=== PATIENT | male | born 1995 | race Caucasian/White ===

== ENCOUNTER 2016-06-12 11:24 | Inpatient (IN) | payer OTHER ==
[2016-06-12 12:35] VITALS: BMI 28.1
--- NOTE | 2016-06-12 15:20 | HP ---
COWS - Scale Resting Pulse: 1= [place] 81-100 Sweatin=Flushed/Facial Moisture Restless Observation: 3= Extraneous Movement Pupil Size: 2= Moderately Dilated Bone or Joint Aches: 2= Severe Diffuse Aches Runny Nose/ Eye Tearin= Runny Nose/Eyes GI Upset > 30mins: 3= Vomiting/Diarrhea Tremor Observation: 2= Slight Tremor Visible Yawning Observation: 2= >3x During Session Anxiety or Irritability: 2=Irritable/Anxious Goose Flesh Skin: 0=Smooth Skin COWS Score: 21 CIWA Score - CIWA Score Nausea/Vomitin Muscle Tremors: 3 Anxiety: 3 Agitation: 3 Paroxysmal Sweats: 2 Orientation: 0-Oriented Tacttile Disturbances: 2-Mild Itch/Numbness/Burn Auditory Disturbances: 2-Mild Harshness/Frighten Visual Disturbances: 2-Mild Sensitivity Headache: 2-Mild CIWA-Ar Total Score: 22 Admission [facility] Chief Complaint: THIS 20 YEARS OLD MALE WITH HEROIN,COCAINE,XANAX,DEPENDENCE,WITHDRAWAL SYMPTOM, LAST TREATMENT REHAB 05/15/14 TO 07/23/13 NICOTINE DEPENDENCE LONGEST PERIOD SOBRIETY 7 MONTHS ON BACTRIM DS FOR ABSCESS OF FOREARMS Allergies/Adverse Reactions: Allergies Allergy/AdvReac Type Severity Reaction Status Date / Time No Known Allergies Allergy Verified 05/15/14 19:06 History of Present Illness: THIS 20 YEARS OL DMALE WITH HEROIN,CCOAINE AND XANAX DEPENDENCE FOR DETOX MENTIONED Exam Limitations: No Limitations - Ebola screening Have you traveled outside of the country in the last 21 days: No (N) Have you had contact with anyone from an Ebola affected area: No Have you been sick,other than usual withdrawal symptoms: No Do you have a fever: No - Review of Systems Constitutional: Chills, Diaphoresis, Night Sweats EENT: reports: Tearing, Nose Congestion Respiratory: reports: No Symptoms reported Cardiac: reports: No Symptoms Reported GI: reports: Diarrhea, Nausea, Vomiting, Abdominal cramping : reports: No Symptoms Reported Musculoskeletal: reports: Back Pain, Joint Pain, Muscle Pain, Joint Stiffness Integumentary: reports: Dryness Neuro: reports: Headache, Tremors Endocrine: reports: No Symptoms Reported Hematology: reports: No Symptoms Reported Psychiatric: reports: other (INSOMNIA) Patient History - Patient Medical History Hx Anemia: No Hx Asthma: No Hx Chronic Obstructive Pulmonary Disease (COPD): No Hx Cancer: No Hx Cardiac Disorders: No Hx Congestive Heart Failure: No Hx Hypertension: No Hx Hypercholesterolemia: No Hx Pacemaker: No HX Cerebrovascular Accident: No Hx Seizures: No Hx Diabetes: No Hx Gastrointestinal Disorders: No Hx Liver Disease: No Hx Genitourinary Disorders: No Hx Sexually Transmitted Disorders: No Hx Renal Disease (ESRD): No Hx Thyroid Disease: No Hx Human Immunodeficiency Virus (HIV): No (LAST 12/09 NEGATIVE) Hx Hepatitis C: No Hx Depression: No Hx Suicide Attempt: No Hx Bipolar Disorder: No Hx Schizophrenia: No Other Medical History: NO SUICIDAL,NO HOMICIDAL - Patient Surgical History Past Surgical History: No Hx Neurologic Surgery: No Hx Cataract Extraction: No Hx Cardiac Surgery: No Hx Lung Surgery: No Hx Breast Surgery: No Hx Breast Biopsy: No Hx Abdominal Surgery: No Hx Appendectomy: No Hx Cholecystectomy: No Hx Genitourinary Surgery: No Hx Section: No Hx Orthopedic Surgery: No Anesthesia Reaction: No - PPD History Previous Implant?: No Documented Results: Negative w/o proof Implanted On Prior R Admission?: Yes Date: 05/17/14 PPD to be Administered?: Yes - Smoking Cessation Smoking history: Current every day smoker Have you smoked in the past 12 months: Yes Aproximately how many cigarettes per day: 20 Hx Chewing Tobacco Use: No Initiated information on smoking cessation: Yes 'Breaking Loose' booklet given: 06/12/16 - Substance & Tx. History Hx Alcohol Use: No Hx Substance Use: Yes Substance Use Type: Cocaine, Heroin, Opiates - Substances Abused Heroin Route: Injection Frequency: Daily Amount used: 20 to 30 bags Age of first use: 18 Date of Last Use: 06/12/16 Alprazolam (Xanax) Route: Oral Frequency: 1-3 times last 30 days Amount used: 2mg pills Age of first use: 16 Date of Last Use: 06/12/16 Marijuana/Hashish Route: Smoking Frequency: 1-2 times per week Amount used: 1 blunt Age of first use: 12 Date of Last Use: 06/11/16 Cocaine Route: Inhalation Frequency: 1-3 times last 30 days Amount used: 20 bags Age of first use: 17 Date of Last Use: 06/10/16 Family Disease History - Family Disease History Family Disease History: Other: Mother (HIV AND MS; DEPENDENT ON ETOH) Admission Physical Exam [facility] - Vital Signs Vital Signs: Vital Signs - 24 hr 06/12/16 12:24 Temperature 97.5 F L Pulse Rate 94 H Respiratory 18 Rate Blood Pressure 137/71 - Physical General Appearance: Yes: Moderate Distress, Tremorous, Irritable, Sweating, Anxious HEENTM: Yes: Rhinorrhea Respiratory: Yes: Lungs Clear Neck: Yes: Within Normal Limits Breast: Yes: Breast Exam Deferred Cardiology: Yes: Within Normal Limits, Regular Rhythm, Regular Rate, S1, S2 Abdominal: Yes: Within Normal Limits, Normal Bowel Sounds, Non Tender, Flat, Soft Genitourinary: Yes: Within Normal Limits Back: Yes: Muscle Spasm Musculoskeletal: Yes: Back pain, Joint Stiffness, Muscle Pain Extremities: Yes: Tremors Neurological: Yes: trapeze artist II-XII NML intact, Fully Oriented, Alert, Motor Strength 5/5 Integumentary: Yes: Dry, Track [place] Lymphatic: Yes: Within Normal Limits - Diagnostic (1) Opioid dependence with withdrawal Current Visit: Yes Status: Acute (2) Uncomplicated sedative, hypnotic or anxiolytic withdrawal Current Visit: Yes Status: Acute (3) Cocaine dependence Current Visit: Yes Status: Acute (4) Cannabis dependence Current Visit: No Status: Chronic (5) Insomnia Current Visit: No Status: Chronic (6) Abscess Current Visit: Yes Status: Acute Cleared for Admission [facility] - Detox or Rehab [facility] Level of Care: Medically Managed Detox Regimen/Protocol: Methadone/Valium [facility] Breath Alcohol Content Breath Alcohol Content: 0 Urine Drug Screen - Results Drug Screen Negative: No Urine Drug Screen Results: THC-Marijuana, MARITZA-Cocaine, OPI-Opiates, OXY- Oxycodone
[2016-06-12] MEDS ORDERED: IBUPROFEN 400 MG TABLET (FP) PO PRN (15:39)
[2016-06-12] MEDS ORDERED: LOPERAMIDE HCL 2 MG CAPSULE PO PRN (15:39)
[2016-06-12] MEDS ORDERED: MAG HYDROX/AL HYDROX/SIMETH 30 ML UNIT-DOSE CUP PO PRN (15:39)
[2016-06-12] MEDS ORDERED: guaiFENesin/D-METHORPHAN HB 10 ML UNIT-DOSE CUPS PO PRN (15:39)
[2016-06-12] MEDS ORDERED: ACETAMINOPHEN 325 MG TABLET (FP) PO PRN (15:39)
[2016-06-12] MEDS ORDERED: MAGNESIUM CITRATE 300 ML BOTTLE PO PRN (15:39)
[2016-06-12] MEDS ORDERED: MENTHOL/PHENOL 1 EACH UD MM PRN (15:39)
[2016-06-12] MEDS ORDERED: MAGNESIUM HYDROX 2400MG/30ML ORAL SUSPENSION 30 ML CUP PO PRN (15:39)
[2016-06-12] MEDS ORDERED: diphenhydrAMINE HCL 50 MG CAPSULE PO PRN (15:39)
[2016-06-12] MEDS ORDERED: P-EPHED 60MG/TRIPROLIDI 2.5MG TABLET PO PRN (15:39)
[2016-06-12] MEDS ORDERED: diazePAM 5 MG TABLET PO ONE (15:45)
[2016-06-12] MEDS ORDERED: METHADONE HCL 10 MG TABLET (FOR DETOX USE ONLY) PO ONE ×2 (15:46→23:00)
[2016-06-12] MEDS: NICOTINE 21 MG/24 HOURS TOPICAL PATCH TD SCH ×2 (17:23→19:09)
[2016-06-12] MEDS: NICOTINE POLACRILEX 2 MG GUM BUC PRN ×2 (20:26→23:43)
[2016-06-12 22:03] LABS: URINE APPEARANCE CLEAR; URINE BILIRUBIN NEGATIVE (NEGATIVE); URINE BLOOD NEGATIVE (NEGATIVE); URINE COLOR DKYELLOW; URINE GLUCOSE (UA) NEGATIVE (NEGATIVE); URINE KETONE NEGATIVE (NEGATIVE); URINE LEUK ESTERASE NEGATIVE (NEGATIVE); URINE NITRITE NEGATIVE (NEGATIVE); URINE PROTEIN NEGATIVE (NEGATIVE); URINE UROBILINOGEN NEGATIVE E.U./dl (0.2-1.0)
[2016-06-12] MEDS: diazePAM 5 MG TABLET PO SCH (22:30)
[2016-06-12] MEDS: THIAMINE HCL 100 MG TABLET (FP) PO SCH (22:30)
[2016-06-12] MEDS: cloNIDine HCL 0.1 MG TABLET PO SCH (22:30)
[2016-06-12] MEDS: SULFAMETHOXAZOLE/TRIMETHOPRIM 800MG/160MG D.S. TABLET PO SCH (22:31)
[2016-06-13] MEDS: diazePAM 5 MG TABLET PO PRN ×2 (01:39→18:36)
[2016-06-13] MEDS: CYCLOBENZAPRINE HCL 10 MG TABLET (FP) PO PRN ×2 (05:58→20:40)
[2016-06-13] MEDS: diazePAM 5 MG TABLET PO SCH ×3 (05:58→22:17)
[2016-06-13] MEDS: NICOTINE POLACRILEX 2 MG GUM BUC PRN (06:54)
[2016-06-13] MEDS ORDERED: METHADONE HCL 10 MG TABLET (FOR DETOX USE ONLY) PO SCH (10:00)
[2016-06-13] MEDS: cloNIDine HCL 0.1 MG TABLET PO SCH ×2 (10:29→22:20)
[2016-06-13] MEDS: SULFAMETHOXAZOLE/TRIMETHOPRIM 800MG/160MG D.S. TABLET PO SCH ×2 (10:29→22:18)
[2016-06-13] MEDS: PRENATAL VITAMINS W/ FOLIC ACID TABLET (FP) PO SCH (10:29)
[2016-06-13] MEDS: NICOTINE 21 MG/24 HOURS TOPICAL PATCH TD SCH (10:30)
[2016-06-13 10:31] LABS: MCH 28.2 pg (25.7-33.7); MCHC 33.4 g/dl (32.0-35.9); MEAN CELL VOLUME 84.5 fl (80-96); MEAN PLT VOLUME 7.6 fl (7.5-11.1); PLATELET COUNT 283 K/MM3 (134-434); RDW 13.3 % (11.9-15.9); WHITE BLOOD COUNT 5.3 K/mm3 (4.0-10.0)
--- NOTE | 2016-06-13 10:32 | PN ---
S CIWA - CIWA Score Nausea/Vomitin-No Nausea/No Vomiting Muscle Tremors: 4-Moderate,w/Arms Extend Anxiety: 4-Mod. Anxious/Guarded Agitation: 4-Moderately Restless Paroxysmal Sweats: 3 Orientation: 0-Oriented Tacttile Disturbances: 3-Moderate Itch/Numb/Burn Auditory Disturbances: 0-None Visual Disturbances: 0-None Headache: 0-None Present CIWA-Ar Total Score: 18 [facility] COWS - Scale Resting Pulse: 0= [place] 80 or Below Sweatin=Flushed/Facial Moisture Restless Observation: 3= Extraneous Movement Pupil Size: 2= Moderately Dilated Bone or Joint Aches: 4=Acute Joint/Muscle Pain Runny Nose/ Eye Tearin= Nasal Congestion GI Upset > 30mins: 1= Stomach Cramp Tremor Observation of Outstretched Hands: 2= Slight Tremor Visible Yawning Observation: 2= >3x During Session Anxiety or Irritability: 2=Irritable/Anxious Goose Flesh Skin: 0=Smooth Skin COWS Score: 19 [facility] Progress Note (SOAP) Subjective: ANXIETY,RESTLESSNESS,IRRITABILITY,DRENCHING SWEATS,SLEEPLESS NIGHT. PT HAS DIFFICULTY WITH UNIT REGULATIONS AND DOES NOT WANT TO BE CALLED FOR VITAL SIGNS,MEALS AND ANYTHING THAT ENCROACHES ON WHAT HE DOES NOT WANT TO DO. PT WAS SPOKEN TO BY THIS CMO & PRESIDENT AND KEVIN GREEN,COUNSELING MANAGER MEDICARE. PT APPEARED TO UNDERSTAND OUR EXPLANATION.GOT UP FOR VITAL SIGNS AFTER TEAMING. Objective: 06/13/16 10:29 Vital Signs Temperature 96.4 F L 06/13/16 09:32 Pulse Rate 54 L 06/13/16 09:32 Respiratory Rate 20 06/13/16 09:32 Blood Pressure 128/81 06/13/16 09:32 O2 Sat by Pulse Oximetry (%) Laboratory Last Values Urine Color Dkyellow 06/12/16 21:00 Urine Appearance Clear 06/12/16 21:00 Urine pH 5.0 (5.0-8.0) 06/12/16 21:00 Ur Specific [place] 1.026 (1.001-1.035) 06/12/16 21:00 Urine Protein Negative (NEGATIVE) 06/12/16 21:00 Urine Glucose (UA) Negative (NEGATIVE) 06/12/16 21:00 Urine Ketones Negative (NEGATIVE) 06/12/16 21:00 Urine Blood Negative (NEGATIVE) 06/12/16 21:00 Urine Nitrite Negative (NEGATIVE) 06/12/16 21:00 Urine Bilirubin Negative (NEGATIVE) 06/12/16 21:00 Urine Urobilinogen Negative E.U./dl (0.2-1.0) 06/12/16 21:00 Ur Leukocyte Esterase Negative (NEGATIVE) 06/12/16 21:00 OTHER LABS RESULTS PENDING Assessment: 06/13/16 10:29 WITHDRAWAL SX Plan: CONTINUE DETOX MONITOR PT'S PROGRESS
--- NOTE | 2016-06-13 11:01 | CONSULT ---
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 Substance Abuse History: reports smoking marijuana since 12 yo(1 blunts daily), cocaine since 17 yo (20 bags dailiy on and off),heroin IV since 18 yo,benzo since 16 yo (xanax 2 mg daily on and off) Medical History: scars due to arm abscess. Psychiatric History: Patient denies psychiatric history,but reports taking something for sleep on and off.He is willing to try Seroquel 100 mg po hs, reports that Trazodone didnt work for him in the past. Physical/Sexual Abuse/Trauma History: denies Mental Status Exam - Mental Status Exam Alert and Oriented to: Time, Place, Person Cognitive Function: Grossly Intact Patient Appearance: Well Groomed Mood: Nervous Affect: Mood Congruent Patient Behavior: Cooperative Speech Pattern: Clear Voice Loudness: Normal Thought Process: Goal Oriented Thought Disorder: Not Present Hallucinations: Denies Suicidal Ideation: Denies Homicidal Ideation: Denies Insight/Judgement: Fair Sleep: Difficulty falling asleep Appetite: Good Muscle strength/Tone: Normal Gait/Station: Normal Psychiatric Findings - Problem List ([place] 1, 2,3) (1) Cocaine dependence Current Visit: Yes Status: Chronic (2) Opioid dependence with withdrawal Current Visit: Yes Status: Chronic (3) Uncomplicated sedative, hypnotic or anxiolytic withdrawal Current Visit: Yes Status: Chronic (4) Cannabis dependence Current Visit: Yes Status: Chronic (5) Substance-induced sleep disorder Current Visit: Yes Status: Chronic - Initial Treatment Plan Initial Treatment Plan: Seroquel 100 mg po hs.
[2016-06-13 11:07] LABS: ALBUMIN 3.9 g/dl (3.4-5.0); ALK PHOS 118 U/L (45-117); ANION GAP 9 (8-16); BILIRUBIN,TOTAL 0.5 mg/dL (0.2-1.0); CALCIUM 9.6 mg/dL (8.5-10.1); CO2 28 mmol/L (21-32); GLUCOSE,RANDOM 97 mg/dL (74-106); SGOT/AST 22 U/L (15-37); SGPT/ALT 35 U/L (12-78); TOT PROT 7.7 g/dl (6.4-8.2)
--- NOTE | 2016-06-13 16:23 | EKG ---
Test Reason : Blood Pressure : / mmHG Vent. Rate : 084 BPM Atrial Rate : 084 BPM P-R Int : 174 ms QRS Dur : 090 ms QT Int : 364 ms P-R-T Axes : 041 086 050 degrees QTc Int : 430 ms NORMAL SINUS RHYTHM NORMAL ECG NO PREVIOUS ECGS AVAILABLE Confirmed by NICOLE HEDRICK MD ([id number]) on 06/13/2016 4:23:03 PM Referred By: Confirmed By:NICOLE HEDRICK MD
[2016-06-13] MEDS: THIAMINE HCL 100 MG TABLET (FP) PO SCH (22:17)
[2016-06-13] MEDS: QUEtiapine FUMARATE 100 MG TABLET (FP) PO SCH (22:18)
[2016-06-14] MEDS: diazePAM 5 MG TABLET PO PRN ×3 (01:55→18:50)
[2016-06-14] MEDS: hydrOXYzine PAMOATE 50 MG CAPSULE (FP) PO PRN (03:37)
[2016-06-14] MEDS: CYCLOBENZAPRINE HCL 10 MG TABLET (FP) PO PRN ×2 (06:01→23:15)
[2016-06-14] MEDS ORDERED: METHADONE HCL 5 MG TABLET (FOR DETOX USE ONLY) PO SCH ×2 (10:00)
--- NOTE | 2016-06-14 10:28 | PN ---
[facility] CIWA - CIWA Score Nausea/Vomitin-No Nausea/No Vomiting Muscle Tremors: 4-Moderate,w/Arms Extend Anxiety: 4-Mod. Anxious/Guarded Agitation: 4-Moderately Restless Paroxysmal Sweats: 1-Minimal Palms Moist Orientation: 0-Oriented Tacttile Disturbances: 3-Moderate Itch/Numb/Burn Auditory Disturbances: 0-None Visual Disturbances: 0-None Headache: 0-None Present CIWA-Ar Total Score: 16 S COWS - Scale Resting Pulse: 2= [place] 101-120 Sweatin= Chills/Flushing Restless Observation: 3= Extraneous Movement Pupil Size: 2= Moderately Dilated Bone or Joint Aches: 4=Acute Joint/Muscle Pain Runny Nose/ Eye Tearin= Nasal Congestion GI Upset > 30mins: 1= Stomach Cramp Tremor Observation of Outstretched Hands: 1= Tremor [place], Not Seen Yawning Observation: 2= >3x During Session Anxiety or Irritability: 2=Irritable/Anxious Goose Flesh Skin: 0=Smooth Skin COWS Score: 19 [facility] Progress Note (SOAP) Subjective: ANXIETY,TREMORS, SWEATS, IRRITABILITY,FATIGUE. IMPROVED MOOD TODAY. OUT TO DAYROOM FOR BREAKFAST THIS MORNING WITH PEERS. Objective: 06/14/16 10:34 Vital Signs Temperature 98.7 F 06/14/16 10:22 Pulse Rate 86 06/14/16 10:22 Respiratory Rate 18 06/14/16 10:22 Blood Pressure 97/65 06/14/16 10:22 O2 Sat by Pulse Oximetry (%) Laboratory Last Values WBC 5.3 K/mm3 (4.0-10.0) D 06/13/16 06:30 RBC 4.75 M/mm3 (4.00-5.60) 06/13/16 06:30 Hgb 13.4 GM/dL (11.7-16.9) D 06/13/16 06:30 Hct 40.1 % (35.4-49) 06/13/16 06:30 MCV 84.5 fl (80-96) 06/13/16 06:30 MCHC 33.4 g/dl (32.0-35.9) 06/13/16 06:30 RDW 13.3 % (11.9-15.9) 06/13/16 06:30 Plt Count 283 K/MM3 (134-434) 06/13/16 06:30 MPV 7.6 fl (7.5-11.1) 06/13/16 06:30 Sodium 138 mmol/L (136-145) 06/13/16 06:30 Potassium 3.9 mmol/L (3.5-5.1) 06/13/16 06:30 Chloride 101 mmol/L (98-107) 06/13/16 06:30 Carbon Dioxide 28 mmol/L (21-32) 06/13/16 06:30 Anion Gap 9 (8-16) 06/13/16 06:30 BUN 8 mg/dL (7-18) D 06/13/16 06:30 Creatinine 1.0 mg/dL (0.7-1.3) D 06/13/16 06:30 Creat Clearance w eGFR > 60 (>60) 06/13/16 06:30 Random Glucose 97 mg/dL (74-106) 06/13/16 06:30 Calcium 9.6 mg/dL (8.5-10.1) 06/13/16 06:30 Total Bilirubin 0.5 mg/dL (0.2-1.0) 06/13/16 06:30 AST 22 U/L (15-37) D 06/13/16 06:30 ALT 35 U/L (12-78) 06/13/16 06:30 Alkaline Phosphatase 118 U/L (45-117) H D 06/13/16 06:30 Total Protein 7.7 g/dl (6.4-8.2) 06/13/16 06:30 Albumin 3.9 g/dl (3.4-5.0) 06/13/16 06:30 Urine Color Dkyellow 06/12/16 21:00 Urine Appearance Clear 06/12/16 21:00 Urine pH 5.0 (5.0-8.0) 06/12/16 21:00 Ur Specific [place] 1.026 (1.001-1.035) 06/12/16 21:00 Urine Protein Negative (NEGATIVE) 06/12/16 21:00 Urine Glucose (UA) Negative (NEGATIVE) 06/12/16 21:00 Urine Ketones Negative (NEGATIVE) 06/12/16 21:00 Urine Blood Negative (NEGATIVE) 06/12/16 21:00 Urine Nitrite Negative (NEGATIVE) 06/12/16 21:00 Urine Bilirubin Negative (NEGATIVE) 06/12/16 21:00 Urine Urobilinogen Negative E.U./dl (0.2-1.0) 06/12/16 21:00 Ur Leukocyte Esterase Negative (NEGATIVE) 06/12/16 21:00 RPR Titer Nonreactive (NONREACTIVE) 06/13/16 06:30 Assessment: 06/14/16 10:34 WITHDRAWAL SX Plan: CONTINUE DETOX
[2016-06-14] MEDS: NICOTINE 21 MG/24 HOURS TOPICAL PATCH TD SCH (10:32)
[2016-06-14] MEDS: PRENATAL VITAMINS W/ FOLIC ACID TABLET (FP) PO SCH (10:32)
[2016-06-14] MEDS: diazePAM 5 MG TABLET PO SCH ×2 (10:32→22:20)
[2016-06-14] MEDS: cloNIDine HCL 0.1 MG TABLET PO SCH ×2 (10:32→22:20)
[2016-06-14] MEDS: SULFAMETHOXAZOLE/TRIMETHOPRIM 800MG/160MG D.S. TABLET PO SCH ×2 (10:32→22:20)
[2016-06-14] MEDS ORDERED: ZOLPIDEM TARTRATE 10 MG TABLET (PARK CARE ONLY) PO PRN (22:00)
[2016-06-14] MEDS: QUEtiapine FUMARATE 100 MG TABLET (FP) PO SCH (22:20)
[2016-06-14] MEDS: THIAMINE HCL 100 MG TABLET (FP) PO SCH (22:20)
[2016-06-15] MEDS: diazePAM 5 MG TABLET PO PRN ×2 (00:57→04:54)
[2016-06-15] MEDS: hydrOXYzine PAMOATE 50 MG CAPSULE (FP) PO PRN (02:20)
[2016-06-15] MEDS: NICOTINE POLACRILEX 2 MG GUM BUC PRN (03:42)
[2016-06-15] MEDS: CYCLOBENZAPRINE HCL 10 MG TABLET (FP) PO PRN (05:33)
[2016-06-15 06:27] VITALS: BP 117/74; PULSE 91; TEMP 98.7
[2016-06-15] MEDS ORDERED: METHADONE HCL 10 MG TABLET (FOR DETOX USE ONLY) PO ONE (10:00)
[2016-06-16] MEDS ORDERED: METHADONE HCL 5 MG TABLET (FOR DETOX USE ONLY) PO SCH (06:00)
[2016-06-16] MEDS ORDERED: diazePAM 5 MG TABLET PO SCH (10:00)
[2016-06-16] MEDS ORDERED: METHADONE HCL 10 MG TABLET (FOR DETOX USE ONLY) PO SCH (10:00)
[2016-06-17] MEDS ORDERED: METHADONE HCL 5 MG TABLET (FOR DETOX USE ONLY) PO SCH (06:00)
--- NOTE | 2016-07-08 19:41 | DS ---
[facility] Detox Discharge Summary Admission Date: 06/12/16 Discharge Date: 06/15/16 - History Present History: Opioid Dependence, Sedative Dependence Pertinent Past History: insomnia - Physical Exam Results Vital Signs: Vital Signs Temperature 98.7 F 06/15/16 06:26 Pulse Rate 91 H 06/15/16 06:26 Respiratory Rate 18 06/15/16 06:26 Blood Pressure 117/74 06/15/16 06:26 O2 Sat by Pulse Oximetry (%) Pertinent Admission Physical Exam Findings: Withdrawal sx. Laboratory Last Values WBC 5.3 K/mm3 (4.0-10.0) D 06/13/16 06:30 RBC 4.75 M/mm3 (4.00-5.60) 06/13/16 06:30 Hgb 13.4 GM/dL (11.7-16.9) D 06/13/16 06:30 Hct 40.1 % (35.4-49) 06/13/16 06:30 MCV 84.5 fl (80-96) 06/13/16 06:30 MCHC 33.4 g/dl (32.0-35.9) 06/13/16 06:30 RDW 13.3 % (11.9-15.9) 06/13/16 06:30 Plt Count 283 K/MM3 (134-434) 06/13/16 06:30 MPV 7.6 fl (7.5-11.1) 06/13/16 06:30 Sodium 138 mmol/L (136-145) 06/13/16 06:30 Potassium 3.9 mmol/L (3.5-5.1) 06/13/16 06:30 Chloride 101 mmol/L (98-107) 06/13/16 06:30 Carbon Dioxide 28 mmol/L (21-32) 06/13/16 06:30 Anion Gap 9 (8-16) 06/13/16 06:30 BUN 8 mg/dL (7-18) D 06/13/16 06:30 Creatinine 1.0 mg/dL (0.7-1.3) D 06/13/16 06:30 Creat Clearance w eGFR > 60 (>60) 06/13/16 06:30 Random Glucose 97 mg/dL (74-106) 06/13/16 06:30 Calcium 9.6 mg/dL (8.5-10.1) 06/13/16 06:30 Total Bilirubin 0.5 mg/dL (0.2-1.0) 06/13/16 06:30 AST 22 U/L (15-37) D 06/13/16 06:30 ALT 35 U/L (12-78) 06/13/16 06:30 Alkaline Phosphatase 118 U/L (45-117) H D 06/13/16 06:30 Total Protein 7.7 g/dl (6.4-8.2) 06/13/16 06:30 Albumin 3.9 g/dl (3.4-5.0) 06/13/16 06:30 Urine Color Dkyellow 06/12/16 21:00 Urine Appearance Clear 06/12/16 21:00 Urine pH 5.0 (5.0-8.0) 06/12/16 21:00 Ur Specific [place] 1.026 (1.001-1.035) 06/12/16 21:00 Urine Protein Negative (NEGATIVE) 06/12/16 21:00 Urine Glucose (UA) Negative (NEGATIVE) 06/12/16 21:00 Urine Ketones Negative (NEGATIVE) 06/12/16 21:00 Urine Blood Negative (NEGATIVE) 06/12/16 21:00 Urine Nitrite Negative (NEGATIVE) 06/12/16 21:00 Urine Bilirubin Negative (NEGATIVE) 06/12/16 21:00 Urine Urobilinogen Negative E.U./dl (0.2-1.0) 06/12/16 21:00 Ur Leukocyte Esterase Negative (NEGATIVE) 06/12/16 21:00 RPR Titer Nonreactive (NONREACTIVE) 06/13/16 06:30 labs noted - Medication Discharge Medications: Ambulatory Orders Sulfamethoxazole/Trimethoprim [Bactrim Ds -] 1 tab PO BID 06/12/16 Zolpidem Tartrate [Ambien] 10 mg PO HS 06/12/16 Quetiapine Fumarate [Seroquel] 100 mg PO HS #30 tablet MDD 100 06/13/16 - Diagnosis (1) Cannabis dependence Status: Chronic (2) Cocaine dependence Status: Chronic Qualifiers: Substance use status: uncomplicated Qualified Code(s): F14.20 - Cocaine dependence, uncomplicated (3) Opioid dependence with withdrawal Status: Acute (4) Substance-induced sleep disorder Status: Chronic (5) Uncomplicated sedative, hypnotic or anxiolytic withdrawal Status: Acute - AMA Did Patient Leave Against Medical Advice: Yes
== END 2016-06-15 08:38 | disposition left against medical advice (07) | DRG 770 ==
LOC: YASAS 11:24 → Y3N 14:18
PROVIDERS: ADMIT Internal Medicine; ATTEND Internal Medicine
PROC: HZ2ZZZZ Detoxification Services for Substance Abuse Treatment (ICD-10-PCS; principal; 2016-06-12)
DX: F11.23 Opioid dependence with withdrawal (principal); F13.230 Sedative, hypnotic or anxiolytic dependence with withdrawal, uncomplicated; F14.20 Cocaine dependence, uncomplicated; F12.20 Cannabis dependence, uncomplicated; F17.210 Nicotine dependence, cigarettes, uncomplicated; F19.282 Other psychoactive substance dependence with psychoactive substance-induced sleep disorder; G47.00 Insomnia, unspecified
CPT/HCPCS: 36415; 80053; 81003; 85027; 86593; 93005; 93010

== ENCOUNTER 2016-10-22 17:40 | Inpatient (IN) | payer OTHER ==
[2016-10-22 19:18] VITALS: BMI 27.2
--- NOTE | 2016-10-22 19:25 | HP ---
COWS - Scale Resting Pulse: 1= [place] 81-100 Sweatin=Flushed/Facial Moisture Restless Observation: 1= Difficult to Sit Still Pupil Size: 0= Normal to Room Light Bone or Joint Aches: 2= Severe Diffuse Aches Runny Nose/ Eye Tearin= Runny Nose/Eyes GI Upset > 30mins: 2= Nausea/Diarrhea Tremor Observation: 2= Slight Tremor Visible Yawning Observation: 1= 1-2x During Session Anxiety or Irritability: 2=Irritable/Anxious Goose Flesh Skin: 0=Smooth Skin COWS Score: 15 Admission ROS S - HPI Chief Complaint: Withdrawal Sx. Allergies/Adverse Reactions: Allergies Allergy/AdvReac Type Severity Reaction Status Date / Time No Known Allergies Allergy Verified 05/15/14 19:06 History of Present Illness: 21 y/o man with hx. of heroin dependence is admitted for detox. Pt. has been in previous detox,denies significant drug interval. Exam Limitations: No Limitations - Ebola screening Have you traveled outside of the country in the last 21 days: No Have you had contact with anyone from an Ebola affected area: No Do you have a fever: No - Review of Systems Constitutional: Diaphoresis EENT: reports: Nose Congestion Respiratory: reports: No Symptoms reported Cardiac: reports: No Symptoms Reported GI: reports: Diarrhea, Nausea, Abdominal cramping : reports: No Symptoms Reported Integumentary: reports: Lesions (multiple lumpy lesions both UE), Sweating Neuro: reports: Tremors Endocrine: reports: No Symptoms Reported Hematology: reports: No Symptoms Reported Psychiatric: reports: No Sypmtoms Reported Other Systems: Reviewed and Negative Patient History - Patient Medical History Hx Anemia: No Hx Asthma: No Hx Chronic Obstructive Pulmonary Disease (COPD): No Hx Cancer: No Hx Cardiac Disorders: No Hx Congestive Heart Failure: No Hx Hypertension: No Hx Hypercholesterolemia: No Hx Pacemaker: No HX Cerebrovascular Accident: No Hx Seizures: No Hx Diabetes: No Hx Gastrointestinal Disorders: No Hx Liver Disease: No Hx Genitourinary Disorders: No Hx Sexually Transmitted Disorders: No Hx Renal Disease (ESRD): No Hx Thyroid Disease: No Hx Human Immunodeficiency Virus (HIV): No Hx Hepatitis C: No Hx Depression: Yes Hx Suicide Attempt: No Hx Bipolar Disorder: No Hx Schizophrenia: No - Patient Surgical History Past Surgical History: No Hx Neurologic Surgery: No Hx Cataract Extraction: No Hx Cardiac Surgery: No Hx Lung Surgery: No Hx Breast Surgery: No Hx Breast Biopsy: No Hx Abdominal Surgery: No Hx Appendectomy: No Hx Cholecystectomy: No Hx Genitourinary Surgery: No Hx Section: No Hx Orthopedic Surgery: No Anesthesia Reaction: No - PPD History Previous Implant?: Yes Documented Results: Negative w/proof Date: 06/14/16 Results: 0 mm PPD to be Administered?: No - Smoking Cessation Smoking history: Current every day smoker Have you smoked in the past 12 months: Yes Aproximately how many cigarettes per day: 20 Hx Chewing Tobacco Use: No Initiated information on smoking cessation: Yes 'Breaking Loose' booklet given: 10/22/16 - Substance & Tx. History Hx Alcohol Use: No Hx Substance Use: Yes Substance Use Type: Cocaine, Heroin Hx Substance Use Treatment: Yes (Detox) - Substances Abused Heroin Route: Injection Frequency: Daily Amount used: 20 Age of first use: 17 Date of Last Use: 10/22/16 Crack Route: Smoking Frequency: 3-6 times per week Amount used: 1/2 gm Age of first use: 16 Date of Last Use: 10/22/16 Family Disease History - Family Disease History Family Disease History: Other: Mother (HIV AND MS; DEPENDENT ON ETOH) Admission Physical Exam S - Vital Signs Vital Signs: Vital Signs - 24 hr 10/22/16 19:16 Temperature 96.8 F L Pulse Rate 84 Respiratory 18 Rate Blood Pressure 108/42 - Physical General Appearance: Yes: Irritable, Sweating, Anxious HEENTM: Yes: Nasal Congestion, Rhinorrhea Respiratory: Yes: Chest Non-Tender, Lungs Clear, Normal Breath Sounds Neck: Yes: Supple Breast: Yes: Breast Exam Deferred Cardiology: Yes: Regular Rhythm, Regular Rate, S1, S2 Abdominal: Yes: Normal Bowel Sounds, Non Tender, Soft Genitourinary: Yes: Within Normal Limits Back: Yes: Within Normal Limits Musculoskeletal: Yes: Within Normal Limits Extremities: Yes: Tremors Neurological: Yes: Fully Oriented, Alert Integumentary: Yes: Erythema, Diaphoresis, Track [place], Other (multiple lumpy lesions along needle tracks) Lymphatic: Yes: Within Normal Limits - Diagnostic (1) Abscess Current Visit: Yes Status: Acute (2) Opioid dependence with withdrawal Current Visit: Yes Status: Acute (3) Cocaine dependence Current Visit: Yes Status: Chronic Qualifiers: Substance use status: uncomplicated Qualified Code(s): F14.20 - Cocaine dependence, uncomplicated Cleared for Admission [facility] - Detox or Rehab [facility] Level of Care: Medically Managed Detox Regimen/Protocol: Methadone [facility] Breath Alcohol Content Breath Alcohol Content: 0 Urine Drug Screen - Results Drug Screen Negative: No Urine Drug Screen Results: THC-Marijuana, MARITZA-Cocaine, OPI-Opiates, BZO- Benzodiazepines
[2016-10-22] MEDS ORDERED: MENTHOL/PHENOL 1 EACH UD MM PRN (19:30)
[2016-10-22] MEDS ORDERED: diphenhydrAMINE HCL 50 MG CAPSULE PO PRN (19:30)
[2016-10-22] MEDS ORDERED: LOPERAMIDE HCL 2 MG CAPSULE PO PRN (19:30)
[2016-10-22] MEDS ORDERED: P-EPHED 60MG/TRIPROLIDI 2.5MG TABLET PO PRN (19:30)
[2016-10-22] MEDS ORDERED: MAGNESIUM CITRATE 300 ML BOTTLE PO PRN (19:30)
[2016-10-22] MEDS ORDERED: ACETAMINOPHEN 325 MG TABLET (FP) PO PRN (19:30)
[2016-10-22] MEDS ORDERED: METHADONE HCL 10 MG TABLET (FOR DETOX USE ONLY) PO ONE ×2 (19:30→23:00)
[2016-10-22] MEDS ORDERED: IBUPROFEN 400 MG TABLET (FP) PO PRN (19:30)
[2016-10-22] MEDS ORDERED: MAGNESIUM HYDROX 2400MG/30ML ORAL SUSPENSION 30 ML CUP PO PRN (19:30)
[2016-10-22] MEDS ORDERED: guaiFENesin/D-METHORPHAN HB 10 ML UNIT-DOSE CUPS PO PRN (19:30)
[2016-10-22] MEDS ORDERED: MAG HYDROX/AL HYDROX/SIMETH 30 ML UNIT-DOSE CUP PO PRN (19:30)
[2016-10-22] MEDS ORDERED: THIAMINE HCL 100 MG TABLET (FP) PO SCH (22:00)
[2016-10-22] MEDS: diazePAM 5 MG TABLET PO PRN (22:38)
[2016-10-22] MEDS: BACITRACIN 0.9 GM PACKET TP SCH (22:38)
[2016-10-22] MEDS: SULFAMETHOXAZOLE/TRIMETHOPRIM 800MG/160MG D.S. TABLET PO SCH (22:38)
[2016-10-22] MEDS: NICOTINE 21 MG/24 HOURS TOPICAL PATCH TD SCH (22:56)
[2016-10-23] MEDS: hydrOXYzine PAMOATE 50 MG CAPSULE (FP) PO PRN ×3 (01:15→20:03)
[2016-10-23] MEDS: diazePAM 5 MG TABLET PO PRN ×4 (02:42→18:31)
[2016-10-23] MEDS: NICOTINE POLACRILEX 2 MG GUM BC PRN ×3 (07:57→20:04)
[2016-10-23] MEDS ORDERED: CYCLOBENZAPRINE HCL 10 MG TABLET (FP) PO PRN (08:54)
[2016-10-23] MEDS ORDERED: METHADONE HCL 10 MG TABLET (FOR DETOX USE ONLY) PO ONE (10:00)
[2016-10-23] MEDS ORDERED: PRENATAL VITAMINS W/ FOLIC ACID TABLET (FP) PO SCH (10:00)
[2016-10-23] MEDS: SULFAMETHOXAZOLE/TRIMETHOPRIM 800MG/160MG D.S. TABLET PO SCH (10:13)
[2016-10-23] MEDS: NICOTINE 21 MG/24 HOURS TOPICAL PATCH TD SCH (10:14)
[2016-10-23] MEDS: BACITRACIN 0.9 GM PACKET TP SCH ×3 (10:15→18:31)
--- NOTE | 2016-10-23 11:52 | CONSULT ---
[facility] Psychiatric Consult - Data Date of interview: 10/23/16 Admission source: [facility] Identifying data: This is 21 years old male with psychiatric hospitalizatioin history, intoxicated with: Opioids, Cannabis, Xanax, Cocaine Substance Abuse History: - Smoking Cessation. Smoking history: Current every day smoker. Have you smoked in the past 12 months: Yes. Aproximately how many cigarettes per day: 20. Hx Chewing Tobacco Use: No. Initiated information on smoking cessation: Yes. 'Breaking Loose' booklet given: 10/22/16. - Substance & Tx. History. Hx Alcohol Use: No. Hx Substance Use: Yes. Substance Use Type : Cocaine, Heroin. Hx Substance Use Treatment: Yes (Detox). - Substances Abused. Heroin. Route: Injection. Frequency: Daily. Amount used: 20. Age of first use: 17. Date of Last Use: 10/22/16. Crack. Route: Smoking. Frequency: 3-6 times per week. Amount used: 1/2 gm. Age of first use: 16. Date of Last Use: 10/22/16 Medical History: Abscess hsitory Psychiatric History: Patient reports history of anxiety, preoccupied with Xanax orders, reports taking prior to admission: Ambien 10mg po qhs. Xanax Physical/Sexual Abuse/Trauma History: Denies Additional Comment: Ambien 10mg po qhs. Xanax Mental Status Exam - Mental Status Exam Alert and Oriented to: Person Patient Appearance: Unkempt Mood: Suspicious, Withdrawn, Anxious Affect: Mood Congruent Patient Behavior: Restless, Talkative Speech Pattern: Appropriate Voice Loudness: Mildly Loud Thought Process: Circumstantial Thought Disorder: Being Controlled Hallucinations: Denies Suicidal Ideation: Denies Homicidal Ideation: Denies Insight/Judgement: Fair Sleep: Difficulty falling asleep Appetite: Fair Muscle strength/Tone: Normal Gait/Station: Normal Additional Comments: Ambien 10mg po qhs. Xanax Psychiatric Findings - Problem List ([place] 1, 2,3) (1) Opioid dependence with withdrawal Current Visit: Yes Status: Acute (2) Cocaine dependence Current Visit: Yes Status: Chronic Qualifiers: Substance use status: uncomplicated Qualified Code(s): F14.20 - Cocaine dependence, uncomplicated (3) Alcohol abuse Current Visit: No Status: Acute (4) Opioid abuse Current Visit: No Status: Acute (5) Uncomplicated sedative, hypnotic or anxiolytic withdrawal Current Visit: No Status: Acute (6) Cannabis dependence Current Visit: No Status: Chronic (7) Substance-induced sleep disorder Current Visit: No Status: Chronic (8) Drug-induced mood disorder Current Visit: Yes Status: Acute - Initial Treatment Plan Initial Treatment Plan: Ambien 10mg po qhs. Xanax
--- NOTE | 2016-10-23 14:50 | PN ---
[facility] COWS - Scale Resting Pulse: 0= IA 80 or Below Sweatin=Flushed/Facial Moisture Restless Observation: 1= Difficult to Sit Still Pupil Size: 0= Normal to Room Light Bone or Joint Aches: 2= Severe Diffuse Aches Runny Nose/ Eye Tearin= Nasal Congestion GI Upset > 30mins: 1= Stomach Cramp Tremor Observation of Outstretched Hands: 2= Slight Tremor Visible Yawning Observation: 1= 1-2x During Session Anxiety or Irritability: 2=Irritable/Anxious Goose Flesh Skin: 3=Piloerection COWS Score: 15 [facility] Progress Note (SOAP) Subjective: Body aches, Stomach Cramping, Anxious, Hot / Cold sensations, Interrupted Sleep , Sweating. Objective: PT. A & O X 3, OBSERVED AMBULATING ON UNIT. 10/23/16 14:48 Vital Signs Temperature 97.3 F L 10/23/16 10:08 Pulse Rate 80 10/23/16 10:08 Respiratory Rate 18 10/23/16 10:08 Blood Pressure 120/76 10/23/16 10:08 O2 Sat by Pulse Oximetry (%) 10/23/16 14:49 ADMISSION LABS NOT YET COLLECTED. Assessment: 10/23/16 14:49 WITHDRAWAL SYMPTOMS. Plan: CONTINUE DETOX. INCREASE PO FLUIDS.
[2016-10-23 18:28] VITALS: BP 116/68; PULSE 65; TEMP 98.1
--- NOTE | 2016-10-23 21:49 | DS ---
[facility] Detox Discharge Summary Admission Date: 10/22/16 Discharge Date: 10/23/16 - History Present History: Cocaine Dependence, Opioid Dependence Pertinent Past History: cocaine dependence - Physical Exam Results Vital Signs: Vital Signs Temperature 98.1 F 10/23/16 18:26 Pulse Rate 65 10/23/16 18:26 Respiratory Rate 16 10/23/16 18:26 Blood Pressure 116/68 10/23/16 18:26 O2 Sat by Pulse Oximetry (%) Pertinent Admission Physical Exam Findings: withdrawal sx lab not available - Treatment Hospital Course: Detox Protocol Followed, Responded well - Medication Discharge Medications: Ambulatory Orders NK [No Known Home Medication] 10/22/16 - Diagnosis (1) Opioid dependence with withdrawal Status: Acute (2) Cocaine dependence Status: Chronic Qualifiers: Substance use status: uncomplicated Qualified Code(s): F14.20 - Cocaine dependence, uncomplicated - AMA Did Patient Leave Against Medical Advice: Yes
[2016-10-23] MEDS ORDERED: ZOLPIDEM TARTRATE 10 MG TABLET (PARK CARE ONLY) PO PRN (22:00)
[2016-10-24] MEDS ORDERED: METHADONE HCL 5 MG TABLET (FOR DETOX USE ONLY) PO ONE (10:00)
--- NOTE | 2016-10-24 14:23 | EKG ---
Test Reason : Blood Pressure : / mmHG Vent. Rate : 070 BPM Atrial Rate : 070 BPM P-R Int : 162 ms QRS Dur : 082 ms QT Int : 400 ms P-R-T Axes : 036 085 071 degrees QTc Int : 432 ms NORMAL SINUS RHYTHM WITH SINUS ARRHYTHMIA NORMAL ECG WHEN COMPARED WITH ECG OF 12-JUN-2016 17:36, NO SIGNIFICANT CHANGE WAS FOUND Confirmed by NICOLE HEDRICK MD ([id number]) on 10/24/2016 2:23:30 PM Referred By: Confirmed By:NICOLE HEDRICK MD
[2016-10-25] MEDS ORDERED: METHADONE HCL 5 MG TABLET (FOR DETOX USE ONLY) PO ONE (10:00)
[2016-10-26] MEDS ORDERED: METHADONE HCL 10 MG TABLET (FOR DETOX USE ONLY) PO ONE (10:00)
[2016-10-27] MEDS ORDERED: METHADONE HCL 5 MG TABLET (FOR DETOX USE ONLY) PO ONE (06:00)
== END 2016-10-23 21:29 | disposition left against medical advice (07) | DRG 770 ==
LOC: YASAS 17:40 → Y6N 17:57
PROVIDERS: ADMIT Internal Medicine; ATTEND Internal Medicine
PROC: HZ2ZZZZ Detoxification Services for Substance Abuse Treatment (ICD-10-PCS; principal; 2016-10-22)
DX: F11.23 Opioid dependence with withdrawal (principal); F14.20 Cocaine dependence, uncomplicated; F17.210 Nicotine dependence, cigarettes, uncomplicated; F19.24 Other psychoactive substance dependence with psychoactive substance-induced mood disorder; F19.282 Other psychoactive substance dependence with psychoactive substance-induced sleep disorder; L02.91 Cutaneous abscess, unspecified
CPT/HCPCS: 93005; 93010